=== PATIENT | male | born 1995 | race Caucasian/White ===

== ENCOUNTER 2021-10-13 09:43 | Emergency (ER) | payer OTHER ==
[2021-10-13 11:00] LABS: HEMOGLOBIN 16.7 gm/dl (14.0-17.5); RED BLOOD COUNT 5.36 M/UL (4.20-5.50); WHITE BLOOD COUNT 7.2 K/UL (4.5-11.0)
[2021-10-13 11:28] LABS: BUN/CREATININE RATIO 16 (0-10)
[2021-10-13] MEDS ORDERED: ZOFRAN ODT 4 MG4 MG SL (12:44)
== END 2021-10-13 13:53 | disposition home or self-care (01) ==
LOC: ER1 09:43
PROVIDERS: Nurse Practitioner
DX: R10.12 Left upper quadrant pain (principal); R11.10 Vomiting, unspecified; F17.210 Nicotine dependence, cigarettes, uncomplicated
CPT/HCPCS: 80053; 83605; 83690; 85025; 85610; 93005; 96374; 96375; 99284; C9113; J2405

== ENCOUNTER 2022-05-03 13:59 | Emergency (ER) | payer OTHER ==
[~2022-05-03 13:59] MED LIST: ZOFRAN ODT 4 MG4 MG SL
[2022-05-03 15:01] LABS: HEMOGLOBIN 15.5 gm/dl (14.0-17.5); RED BLOOD COUNT 5.04 M/UL (4.20-5.50); WHITE BLOOD COUNT 11.9 K/UL (4.5-11.0)
[2022-05-03 15:28] LABS: BUN/CREATININE RATIO 20 (0-10)
[2022-05-03] MEDS ORDERED: IBUPROFEN800 MG PO (16:53)
== END 2022-05-03 17:57 | disposition home or self-care (01) ==
LOC: ER1 13:59
PROVIDERS: Physician Assistant
DX: R93.0 Abnormal findings on diagnostic imaging of skull and head, not elsewhere classified (principal); R51.9 Headache, unspecified; F17.220 Nicotine dependence, chewing tobacco, uncomplicated
CPT/HCPCS: 70470; 80053; 85025; 93005; 99284; J1200; J2765; Q9967